=== PATIENT | female | born 1965 | race Caucasian/White ===

== ENCOUNTER 2019-11-14 17:31 | Outpatient (CLI) | payer OTHER, SELFPAY ==
[2019-11-14 18:56] LABS: Basophils # 0.1 10^3/uL (0.0-0.1); Basophils % 0.7 %; Eosinophils # 0.2 10^3/uL (0.0-0.8); Eosinophils % 2.5 %; Hemoglobin 12.4 g/dL (11.5-15.3); Lymphocytes # 2.7 10^3/uL (0.8-4.8); Lymphocytes % 36.7 %; Mean Corpuscular Hemoglobin 29.2 pg (28.0-34.0); Mean Corpuscular Volume 94.1 fL (81-99); Mean Platelet Volume 10.3 fL (7.4-10.4); Monocytes # 0.5 10^3/uL (0.2-0.9); Monocytes % 6.7 %; Neutrophils # 3.9 10^3/uL (1.8-7.7); Nucleated Red Blood Cells % 0 %; Platelet Count 285 10^3/cmm (130-400); Red Blood Count 4.25 10^6/uL (4.1-5.3); Red Cell Distribution Width 12.3 % (12.1-15.1); White Blood Count 7.3 10^3/uL (4.0-10.0)
[2019-11-14 19:32] LABS: Estmated Average Glucose 120; Hemoglobin A1C 5.8 % (4.0-6.0)
[2019-11-14 20:21] LABS: Calcium 9.7 mg/dL (8.5-10.5); Parathyroid Hormone 45.9 pg/mL (15-65)
[2019-11-14 20:33] LABS: Folate Level 19.4 ng/mL (4.8-37.3)
[2019-11-14 21:00] LABS: Alanine Aminotransferase 14 U/L (0-33); Albumin Level 4.4 g/dL (3.5-5.2); Alkaline Phosphatase 81 IU/L (35-105); Anion Gap 16.9 (5-19); Aspartate Amino Transferase 14 U/L (0-32); Blood Urea Nitrogen 10 mg/dL (6-20); Calcium 10.5 mg/dL (8.5-10.5); Carbon Dioxide 27 mmol/L (22-29); Chloride 100 mmol/L (98-107); Ferritin 132 ng/mL (15-150); Globulin 3.1 g/dL (1.3-4.6); Glomerular Filtration Rate 166.3 mL/min (90-130); Glucose 96 mg/dL (65-115); Iron 52 ug/dL (37-145); Magnesium 2.1 mg/dL (1.7-2.3); Osmolality Calculated 286 mOsm/kg (285-295); Percent Saturation 21.3 % (20-50); Phosphorus 3.2 mg/dL (2.5-4.5); Potassium 3.9 mmol/L (3.5-5.1); Sodium 140 mmol/L (136-145); Thyroid Stimulating Hormone 0.03 uIU/mL (0.27-4.20); Total Bilirubin 0.2 mg/dL (0.15-1.2); Total Iron Binding Capacity 244 mcg/dl; Total Protein 7.5 g/dL (6.6-8.7); Unsaturated Iron Binding 192 ug/dL (112-347); Vitamin B12 454 pg/mL (232-1245)
[2019-11-14 21:59] LABS: Chol HDL Ratio 2.55 mg/dL (0.0-4.40); Cholesterol 217 mg/dL (0-200); HDL Cholesterol 85 mg/dL (60-100); LDL Cholesterol Calculated 112 mg/dL (50-129); LDL HDL Ratio 1.32 RATIO (0.00-3.22); Triglycerides 100 mg/dL (0-150)
== END 2019-11-14 17:32 | disposition home or self-care (01) ==
LOC: LAB 17:34
PROVIDERS: PCP Registered Nurse; Visit Provider Surgery
DX: E66.9 Obesity, unspecified (principal)
CPT/HCPCS: 36415; 80053; 80061; 82248; 82310; 82607; 82728; 82746; 83036; 83540; 83550; 83735; 83970; 84100; 84443; 85025

== ENCOUNTER → 2020-02-14 16:29 | Outpatient (BNVA) | payer OTHER, SELFPAY | PROVIDERS: PCP Registered Nurse; Visit Provider Obstetrics & Gynecology | DX: N90.7 Vulvar cyst (principal) | CPT/HCPCS: 88305 ==

== ENCOUNTER 2020-04-11 15:30 | Outpatient (CLI) | payer OTHER, SELFPAY ==
--- NOTE | 2020-04-11 15:40 | MM_ITS ---
WS: [id number] BILATERAL SCREENING DIGITAL MAMMOGRAM WITH CAD HISTORY: SCREENING COMPARISON: 05/26/2018, 03/11/2017, 06/10/2015 and 09/19/2013 Bilateral CC and MLO views submitted. Computer aided detection analyzed. Breast composition: There are scattered areas of fibroglandular density. No suspicious masses, microc alcifications or architectural distortion. Asymmetry in the posterior medial LEFT breast above the ni pple has been present and very similar in appearance to the prior study from 2013. There is an adjace nt biopsy clip. MM/[place] [id number] IMPRESSION: BI-RADS: 2-Benign FOLLOW UP: 1 Year Follow-up
== END 2020-04-11 15:31 | disposition home or self-care (01) ==
LOC: RADSHAW 15:33
PROVIDERS: PCP Nurse Practitioner Family; Visit Provider Nurse Practitioner Family
DX: Z12.31 Encounter for screening mammogram for malignant neoplasm of breast (principal)
CPT/HCPCS: 77067

== ENCOUNTER 2020-06-04 11:40 | Outpatient (CLI) | payer OTHER, SELFPAY ==
--- NOTE | 2020-06-04 12:01 | ECG_ITS ---
[facility] Test Date: 2020-06-04 Pat Name: Gladys Desir Department: Room: Gender: Female Pediatric Intensive Physician: : 1965 Requested By: Juan Tipton Order Number: [id number] Sari MD: Mak Grace M.D. Measurements Intervals [place] Rate: 76 P: 64 SC: 141 QRS: 58 QRSD: 83 T: 62 QT: 343 QTc: 387 Interpretive Statements SINUS RHYTHM INTERPRETATION BASED ON A DEFAULT AGE OF 40 YEARS Compared to ECG 11/09/2017 01:59:25 No significant changes Electronically Signed On 06-04-2020 19:43:05 POWER PROJECT MANAGER by Mak Grace M.D. [id number] f
== END 2020-06-04 11:41 | disposition home or self-care (01) ==
PROVIDERS: PCP Nurse Practitioner Family; Visit Provider Surgery Plastic and Reconstructive Surgery
DX: Z11.59 Encounter for screening for other viral diseases (principal)
CPT/HCPCS: 93005

== ENCOUNTER → 2020-11-04 15:36 | Outpatient (BNVA) | payer OTHER, SELFPAY | PROVIDERS: PCP Nurse Practitioner Family; Visit Provider Family Medicine | DX: E05.90 Thyrotoxicosis, unspecified without thyrotoxic crisis or storm (principal) | CPT/HCPCS: 84439; 84443; 84480 ==

== ENCOUNTER 2021-01-23 13:11 | Outpatient (CLI) | payer OTHER, SELFPAY ==
--- NOTE | 2021-01-23 13:34 | ECG_ITS ---
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
== END 2021-01-23 13:12 | disposition home or self-care (01) ==
PROVIDERS: PCP Family Medicine; Visit Provider Nurse Practitioner Adult Health
DX: G35 Multiple sclerosis (principal)
CPT/HCPCS: 93005

== ENCOUNTER → 2021-05-06 08:20 | Outpatient (BNVA) | payer OTHER, SELFPAY | PROVIDERS: PCP Family Medicine; Visit Provider Family Medicine | DX: Z13.6 Encounter for screening for cardiovascular disorders (principal); E05.90 Thyrotoxicosis, unspecified without thyrotoxic crisis or storm | CPT/HCPCS: 80053; 80061; 84439; 84443; 84480; 85025 ==

== ENCOUNTER → 2021-05-14 13:52 | Outpatient (BNVA) | payer OTHER, SELFPAY | PROVIDERS: PCP Family Medicine; Visit Provider Internal Medicine | DX: E05.20 Thyrotoxicosis with toxic multinodular goiter without thyrotoxic crisis or storm (principal); E05.90 Thyrotoxicosis, unspecified without thyrotoxic crisis or storm | CPT/HCPCS: 84439; 84443; 84480 ==

== ENCOUNTER → 2021-05-18 08:58 | Outpatient (BNVA) | payer OTHER, SELFPAY | PROVIDERS: PCP Family Medicine; Visit Provider Internal Medicine | DX: E05.20 Thyrotoxicosis with toxic multinodular goiter without thyrotoxic crisis or storm (principal) | CPT/HCPCS: 99214 ==

== ENCOUNTER 2021-10-12 14:55 | Outpatient (CLI) | payer OTHER, SELFPAY ==
--- NOTE | 2021-10-12 15:02 | MM_ITS ---
WS: [id number] VIEWS: MLO and CC views both breasts. Breast implant displacement MLO and CC views also obtained. 3D digital tomosynthesis is also included in this exam. Comparison made with prior exam of 05/16/2012, 09/19/2013, 03/11/2017, 05/26/2018, 04/11/2020.. Findings: There was no sign of mass, architectural distortion or suspicious calcification in either breast. Int act bilateral breast implants.Fatty MM/[place] [id number] Impression: BI-RADS: 2-Benign FOLLOW-UP: 1 Year Follow-up This mammogram was also analyzed by the Computer Aided Detection System R2 Imag e Retail Agent.
== END 2021-10-12 14:56 | disposition home or self-care (01) ==
LOC: RADSHAW 14:56
PROVIDERS: PCP Family Medicine; Visit Provider Family Medicine
DX: Z12.31 Encounter for screening mammogram for malignant neoplasm of breast (principal)
CPT/HCPCS: 77063; 77067

== ENCOUNTER → 2022-08-02 10:39 | Outpatient (BNVA) | payer OTHER, SELFPAY | PROVIDERS: PCP Family Medicine; Visit Provider Family Medicine | DX: E05.90 Thyrotoxicosis, unspecified without thyrotoxic crisis or storm (principal); Z13.6 Encounter for screening for cardiovascular disorders; Z98.84 Bariatric surgery status; D50.9 Iron deficiency anemia, unspecified; E55.9 Vitamin D deficiency, unspecified | CPT/HCPCS: 80053; 80061; 82306; 82310; 82607; 82728; 83036; 83550; 83970; 84425; 84439; 84443; 84480; 85025 ==

== ENCOUNTER → 2022-08-11 15:46 | Outpatient (BNVA) | payer OTHER, SELFPAY | PROVIDERS: PCP Family Medicine; Visit Provider Nurse Practitioner | DX: E53.8 Deficiency of other specified B group vitamins (principal); R30.0 Dysuria; N39.0 Urinary tract infection, site not specified; N30.00 Acute cystitis without hematuria | CPT/HCPCS: 81000 ==

== ENCOUNTER → 2022-10-08 13:28 | Outpatient (BNVA) | payer OTHER, SELFPAY | PROVIDERS: PCP Family Medicine; Visit Provider Internal Medicine | DX: E05.20 Thyrotoxicosis with toxic multinodular goiter without thyrotoxic crisis or storm (principal) | CPT/HCPCS: 84439; 84443; 84480 ==

== ENCOUNTER 2022-10-20 09:30 | Outpatient (CLI) | payer OTHER, SELFPAY ==
--- NOTE | 2022-10-20 09:39 | MM_ITS ---
WS: [id number] BILATERAL SCREENING DIGITAL BREAST MAMMOGRAPHY WITH ZAINA DISPLACEMENT VIEWS. CAD PERFORMED. HISTORY: SCREENING COMPARISON: 10/12/2021, 04/11/2020 Bilateral craniocaudal and mediolateral oblique views are performed with tomosynthesis and SM. Zaina displacement views in CC and MLO projection also performed. Breasts composition: There are scattered areas of fibroglandular density. Retropectoral implants are intact. No capsular contraction or collapse. No suspicious masses. Benign calcifications in each breast. MM/[place] [id number] IMPRESSION: BI-RADS: 2-Benign FOLLOW-UP: 1 Year Follow-up
== END 2022-10-20 09:31 | disposition home or self-care (01) ==
LOC: RAD 09:35
PROVIDERS: PCP Family Medicine; Visit Provider Family Medicine
DX: Z12.31 Encounter for screening mammogram for malignant neoplasm of breast (principal)
CPT/HCPCS: 77063; 77067

== ENCOUNTER 2022-10-25 09:51 | Outpatient (CLI) | payer OTHER, SELFPAY ==
--- NOTE | 2022-10-25 10:14 | NM_ITS ---
WS: [id number] NUCLEAR MEDICINE THYROID UPTAKE AND SCAN HISTORY: hyperthyroidism COMPARISON: Ultrasound 07/27/2016 Radionucleotide: 120 uCi Iodine-123 sodium iodide capsule. Oral ingestion. Imaging performed at 24 hours post ingestion of capsule. Marker placed over the chin and suprasternal notch. Hyperfunctioning nodule in the mid to lower LEFT thyroid. There is marked increased uptake of the rad iotracer within this nodule. LEFT thyroid lobe is larger than the RIGHT. The RIGHT is small caliber. No photopenic defects are identified. Thyroid uptake at 24 hours: 38%. (Normal uptake at 24 hours 10-30%). NM/NM thyroid uptake multi [id number] IMPRESSION: 1. Thyroid uptake at 24 hours is just slightly greater than normal. Very mild hyperthyroidism. 2. Hyperfunctioning nodule mid to lower LEFT thyroid. On a prior ultrasound fr om 07/27/2016 solid mass in this location. No cold nodules.
== END 2022-10-25 09:52 | disposition home or self-care (01) ==
LOC: RAD 09:54
PROVIDERS: PCP Family Medicine; Visit Provider Internal Medicine
DX: E05.20 Thyrotoxicosis with toxic multinodular goiter without thyrotoxic crisis or storm (principal)
CPT/HCPCS: 78014; A9516

== ENCOUNTER → 2022-11-18 14:13 | Outpatient (BNVA) | payer OTHER, SELFPAY | PROVIDERS: PCP Family Medicine; Visit Provider Family Medicine | DX: Z20.2 Contact with and (suspected) exposure to infections with a predominantly sexual mode of transmission (principal) | CPT/HCPCS: 86592; 86803; 87806 ==

== ENCOUNTER → 2022-11-25 14:43 | Outpatient (BNVA) | payer OTHER, SELFPAY | PROVIDERS: PCP Family Medicine; Visit Provider Family Medicine | DX: Z20.2 Contact with and (suspected) exposure to infections with a predominantly sexual mode of transmission (principal) | CPT/HCPCS: 87491; 87591; 87661 ==

== ENCOUNTER → 2022-12-09 15:33 | Outpatient (BNVA) | payer OTHER, SELFPAY | PROVIDERS: PCP Family Medicine; Visit Provider Internal Medicine | DX: E05.20 Thyrotoxicosis with toxic multinodular goiter without thyrotoxic crisis or storm (principal) | CPT/HCPCS: 84439; 84443; 84480 ==

== ENCOUNTER → 2023-01-10 13:24 | Outpatient (BNVA) | payer OTHER, SELFPAY | PROVIDERS: PCP Family Medicine; Visit Provider Specialist | DX: G35 Multiple sclerosis (principal) | CPT/HCPCS: 82306; 82728; 83550; 86160; 86162; 86235; 86255; 86376 ==

== ENCOUNTER 2023-02-10 15:23 | Outpatient (CLI) | payer OTHER, SELFPAY ==
--- NOTE | 2023-02-10 16:00 | USR_ITS ---
PROCEDURE INFORMATION: Exam: US Soft Tissue Head and Neck, Thyroid Exam date and time: 02/10/2023 4:14 PM Age: 57 years old Clinical indication: Condition or disease; Thyroid disorder; Other: Tyroid nodule TECHNIQUE: Imaging protocol: Real-time ultrasound scan of the neck with image documentation. Exam focused on the thyroid. COMPARISON: [place] thyroid [id number] 07/27/2016 7:14 AM FINDINGS: Right thyroid lobe: There is a 1.5 x 0.9 x 0.8 cm solid hypoechoic taller than wide nodule in the posterosuperior right lobe. Margins are smooth. Tiny punctate echogenic foci are seen in the lesion consistent with microcalcifications. There is a 1.2 x 1.1 x 0.9 cm measured focal abnormality in the inferior right lobe. This abnormality is poorly imaged. The abnormality consists of a macro calcification with posterior acoustic shadowing and poorly visualized surrounding thyroid tissue. Margins are ill-defined. The right lobe measures 4.6 x 1.5 x 1.4 cm for a volume of 5.1 cc. Background parenchymal echotexture in the right lobe is normal. Left thyroid lobe: There is a mixed solid and cystic 2.5 x 1.7 x 1.4 cm wider than tall nodule in the mid left lobe. The solid component is isoechoic to hyperechoic relative to background thyroid parenchyma. Margins are partially smooth and partially ill-defined. Punctate internal echogenic foci are seen in the lesion consistent with microcalcifications. The left lobe measures 4.2 x 1.5 x 1.5 cm for a volume of 5 cc. Isthmus: The isthmus is normal. The isthmus measures 3 mm in thickness. Lymph nodes: No cervical lymphadenopathy is visible. US/US thyroid [id number] IMPRESSION: 1. 1.5 cm solid right lobe thyroid nodule. TI-RADS category TR5, Highly Suspicious. Fine needle aspiration is recommended. (Reference: Chance) 2. 2.5 cm mixed solid and cystic left lobe thyroid nodule. TI-RADS category TR4, Moderately Suspicious. Fine needle aspiration is recommended. (Reference: Chance) 3. Poorly visualized macrocalcification with questionable solid nodule at the inferior right lobe. Recommend repeat ultrasound interrogation of this lesion. REFERENCES: Chance FN, Edie WD, Kt EG et al. ACR Thyroid Imaging, Reporting and Data System (TI-RADS): White Paper of the ACR TI-RADS Committee. J Am Joel Radiol. 2017; 14: 587-595.
== END 2023-02-10 15:24 | disposition home or self-care (01) ==
PROVIDERS: PCP Family Medicine; Visit Provider Otolaryngology
DX: E04.1 Nontoxic single thyroid nodule (principal)
CPT/HCPCS: 76536

== ENCOUNTER 2023-02-25 11:20 | Outpatient (CLI) | payer OTHER, SELFPAY ==
--- NOTE | 2023-02-25 12:45 | US_ITS ---
WS: [email or web address] ULTRASOUND THYROID FNA CLINICAL INFORMATION: E04.1 - Nontoxic single thyroid nodule TECHNIQUE: Ultrasound-guided FNA FINDINGS: The procedure including risks, benefits, and complications were discussed with the patient who agreed to proceed. Timeout was performed. Using sterile technique patient was prepped and draped in usual sterile fashion. After 1% lidocaine, using ultrasound guidance, a 25-gauge needle was advanc ed into the LEFT mid thyroid nodule. 4 passes were made with active aspiration. Next, the RIGHT mid thyroid nodule was localized and 4 passes were performed with active aspiration. No immediate complications. Pathology was present for slide preparation. No immediate complications. Patient remained in the ultrasound suite 10 minutes postprocedure with intermittent ultrasound to ens ure no hematoma. No hematoma 10 minutes postprocedure. IMPRESSION: Uncomplicated ultrasound-guided thyroid FNA of the RIGHT and LEFT thyroid nodules.
== END 2023-02-25 11:21 | disposition home or self-care (01) ==
PROVIDERS: PCP Family Medicine; Visit Provider Otolaryngology
DX: E04.1 Nontoxic single thyroid nodule (principal)
CPT/HCPCS: 10005; 88173

== ENCOUNTER → 2023-03-08 12:59 | Outpatient (BNVA) | payer OTHER, SELFPAY | PROVIDERS: PCP Family Medicine; Visit Provider Family Medicine | DX: Z98.84 Bariatric surgery status (principal); Z13.6 Encounter for screening for cardiovascular disorders; E55.9 Vitamin D deficiency, unspecified; D50.9 Iron deficiency anemia, unspecified; E53.8 Deficiency of other specified B group vitamins; E05.20 Thyrotoxicosis with toxic multinodular goiter without thyrotoxic crisis or storm; R63.5 Abnormal weight gain | CPT/HCPCS: 82306; 82607; 82728; 83550; 84439; 84443; 84480; 85025 ==

== ENCOUNTER 2023-03-22 13:02 | Outpatient (CLI) | payer OTHER, SELFPAY ==
--- NOTE | 2023-03-22 15:35 | OP.DCCON ---
Reason for Visit: Weight gain following gastric bypass surgery Person Interviewed: Patient Medical History, Labs and Background: Gladys had bariatric surgery in October 2017 and eventually lost 100 lbs. She has hyperthyroidism, B-12 deficiency, GERD, gastritis, RLS, and anxiety. Height: 5 ft 3 in Weight: 177 lb BMI: 31.4 kg/m2 UBW: around 150-160 IBW: 140-150 lbs Weight History: Gladys lost the 100 lbs, but has noticed in the past year that her weight is creeping back up on her and she is anxious - even was a bit teary eyed talking about it. Her goal would be between 140-150, and a couple of years ago she was 150-160 lbs. Concerns and Goals: She is stressed at the thought of losing control and gaining all the weight back. Lately she has had days where she will eat maybe 1 meal/day. Sleep Hygiene: Work can start as early as 3am so her sleep habits are not good per her own admission. Physical Activity: The one thing she knows she needs to get back to is walking. When she was feeling her best she was walking 5 miles/day and it helped with weight loss and overall well-being. She truly enjoys that time. Other Feeding Issues: She did not mention any feeding issues other then she has no appetite. Food Allergies and Sensitivities: She doesn't have any at this time. Meds, Supplements & Other: She gets a B-12 injection and takes a MV> 24 Hour Recall: Breakfast Time: 3 am 2 eggs cooked in microwave Snack Time: noon protein bar Lunch Time: Snack Time: Dinner Time: Snack Time: Eating Out: She said she rarely eats out. Soda vs Milk vs Water: She is not a milk drinker, occasionally has an alcoholic drink and doesn't drink soda. Additional Comments: Gladys seemed almost terrified at the thought of gaining her wt back. Recommendations: Assessment: Gladys wants to get back down to 150 lbs. As she talks about it she is very anxious and I suspect it affects her appetite. Not walking like she used to is what she describes as the aviles to her wt loss. Her work hours are crazy and affect her sleep patterns, but in general her sleep hygiene is messed up. We discussed the need for smaller meals throughout the day so as to not send her body into a starvation mode and to accommodate the fuel she actually needs. Diagnosis: Inadequate oral intake r/t fear AEB irregular eating patterns. Intervention: Because she brought up exercise, we talked about that as part of her plan for this next week, to walk at least 3 times, for 20 minutes or more. Next I asked her to consider writing out a meal plan at the start of each day where she would write down what she would eat for that day. It would be 3-5 small meals, with drinking water in between, and it would allow her know what she was eating and not feel out of control. Lastly we talked about support and she has a friend that would be someone who could encourage and support and ask her about her goals. Monitoring and Evaluation: I will email her goals to her so that she has my information for following up and can contact me with questions or concerns. Coding Level of Care Code Nutrition/Individ/Init 60 min Time Spent (min) 60
== END 2023-03-22 13:03 | disposition home or self-care (01) ==
PROVIDERS: PCP Family Medicine; Visit Provider Family Medicine
DX: Z71.3 Dietary counseling and surveillance (principal); R63.5 Abnormal weight gain; Z98.84 Bariatric surgery status; Z68.31 Body mass index [BMI] 31.0-31.9, adult
CPT/HCPCS: 82306; 82607; 82728; 83550; 84439; 84443; 84480; 85025; 97802

== ENCOUNTER → 2023-05-10 11:41 | Outpatient (BNVA) | payer OTHER, SELFPAY | PROVIDERS: PCP Family Medicine; Visit Provider Family Medicine | DX: N89.8 Other specified noninflammatory disorders of vagina (principal) | CPT/HCPCS: 87070; 87077; 87205 ==

== ENCOUNTER 2023-08-01 07:34 | Outpatient (CLI) | payer OTHER, SELFPAY ==
--- NOTE | 2023-08-01 07:45 | USCV_ITS ---
Bertaisauro Gladys Age: 58 Gender: F : 1965 Exam Date: 08/01/2023 07:49 Ordering Phys: Sil Fabian DO Technologist: SEYMOUR Exam Location: [facility] [place] Indication: Right Bruit Risk Factors: Previous Vascular Surgery: Right Brachial BP: / Left Brachial BP: / Right Left Velocity (cm/s) Spectral Plaque Velocity (cm/s) Spectral Plaque Syst/Diast Broadening Syst/Diast Broadening 48.60/ 19.10 Prox CCA 58.10 / 16.20 56.50/ 25.00 Mid CCA 53.80 / 23.90 56.50/ 24.60 Distal CCA 62.00 / 29.00 45.30/ 22.30 Prox ICA 49.10 / 21.90 58.30/ 26.00 Mid ICA 64.60 / 26.20 60.80/ 26.70 Distal ICA 61.40 / 30.40 43.40 ECA 36.30 1.08 ICA/CCA 1.04 Antegrade Vertebral Antegrade 36.20/ 15.10 cm/s 45.90/ 19.20 cm/s Tri Subclavian Tri 93.50 94.00 FINDINGS Comparison: none available. No significant elevation of systolic or diastolic velocities. Waveforms are normal. Minimal bilateral scattered calcified plaque and intimal thickening throughout the common carotid arteries and extending through the bifurcation. Antegrade vertebral arteries. CONCLUSIONS Bilateral ICA stenosis less than 50%. Minimal bilateral carotid atherosclerosis. Dr. Adelia Nelson DO (Electronically Signed) Final Date: 01 August 2023 08:18 S
== END 2023-08-01 07:35 | disposition home or self-care (01) ==
LOC: RAD 07:34
PROVIDERS: PCP Family Medicine; Visit Provider Family Medicine
DX: I65.23 Occlusion and stenosis of bilateral carotid arteries (principal); R09.89 Other specified symptoms and signs involving the circulatory and respiratory systems
CPT/HCPCS: 93880

== ENCOUNTER → 2023-08-09 11:46 | Outpatient (BNVA) | payer OTHER, SELFPAY | PROVIDERS: PCP Family Medicine | DX: E04.1 Nontoxic single thyroid nodule (principal) | CPT/HCPCS: 84439; 84443; 84480 ==

== ENCOUNTER 2023-10-17 12:01 | Outpatient (CLI) | payer OTHER, SELFPAY ==
[2023-10-17 12:06] VITALS: BMI 33.6
--- NOTE | 2023-10-17 12:06 | ECG_ITS ---
[facility] Test Date: 2023-10-17 Pat Name: Gladys Desir Department: Room: Gender: Female Optical Instrument Inspector: Maren MinayaElan : 1965 Requested By: Kingston Castellanos Order Number: [id number] Sari MD: Mak Grace M.D. Interpretive Statements NAME OF STUDY: TREADMILL STRESS TEST INDICATION: Jaw pain, PROCEDURE: At the baseline, the patient's blood pressure was 134/79 with a heart rate of 93. The baseline electrocardiogram showed normal sinus rhythm with some early repolarization changes. Because of the artifacts, difficult to interpret. The patient exercised for 7 minutes and 30 seconds on a standard Julio protocol. Patient attained a maximum heart rate of 170 beats per minute(105% of the maximum predicted heart rate) with a blood pressure at the peak exercise of 181/78 mm Hg. The EKG at the peak exercise revealed no significant changes. Patient did not have any chest pain or any significant cardiac arrhythmias with the exercise During the recovery phase, there were no new changes. Blood pressure at the end of the recovery phase was 135/82 mm Hg with a heart rate of 98 per minute. CONCLUSION: 1. No significant EKG changes with the treadmill exercise 2. No exercise-induced chest pain or cardiac arrhythmia 3. Fair exercise tolerance, attained a maximum of 10.2 METs Electronically Signed On 10-24-2023 23:18:30 CDT by Mak Grace M.D. [id number]
[2023-10-17 13:08] VITALS: BP 135/82; PULSE 98
== END 2023-10-17 12:02 | disposition home or self-care (01) ==
PROVIDERS: PCP Family Medicine; Visit Provider Internal Medicine Cardiovascular Disease
DX: R68.84 Jaw pain (principal)
CPT/HCPCS: 93017

== ENCOUNTER 2024-02-22 09:25 | Outpatient (CLI) | payer OTHER, SELFPAY ==
--- NOTE | 2024-02-22 09:31 | MM_ITS ---
WS: [id number] VIEWS: MLO and CC views both breasts. 3D digital tomosynthesis is also included in this exam. Breast implant displacement MLO and cc views also are obtained. Comparison made with prior exam of 10/12/2021 and 10/20/2022.. Findings: There was no sign of mass, architectural distortion or suspicious calcification in either breast. Int act bilateral breast implants. There are scattered areas of fibroglandular density MM/[place] [id number] Impression: BI-RADS: 2-Benign finding. FOLLOW-UP: 1 Year Follow-up This mammogram was also analyzed by the Computer Aided Detection System R2 Imag e Sec Accountant.
== END 2024-02-22 09:26 | disposition home or self-care (01) ==
PROVIDERS: PCP Family Medicine; Visit Provider Family Medicine
DX: Z12.31 Encounter for screening mammogram for malignant neoplasm of breast (principal); R92.323 Mammographic fibroglandular density, bilateral breasts
CPT/HCPCS: 77063; 77067

== ENCOUNTER → 2024-03-08 13:55 | Outpatient (BNVA) | payer OTHER, SELFPAY | PROVIDERS: PCP Family Medicine; Visit Provider Family Medicine | DX: E05.90 Thyrotoxicosis, unspecified without thyrotoxic crisis or storm (principal); E53.8 Deficiency of other specified B group vitamins | CPT/HCPCS: 80053; 80061; 82607; 84439; 84443; 84480; 85025 ==

== ENCOUNTER → 2024-03-27 07:48 | Outpatient (BNVA) | payer OTHER, SELFPAY | PROVIDERS: PCP Family Medicine | DX: Z20.2 Contact with and (suspected) exposure to infections with a predominantly sexual mode of transmission (principal) | CPT/HCPCS: 86695; 86696; 87491; 87591; 87806 ==

== ENCOUNTER → 2025-04-03 15:13 | Outpatient (BNVA) | payer OTHER, SELFPAY | PROVIDERS: PCP Family Medicine; Visit Provider Family Medicine | DX: E05.90 Thyrotoxicosis, unspecified without thyrotoxic crisis or storm (principal); E53.8 Deficiency of other specified B group vitamins | CPT/HCPCS: 80053; 80061; 82607; 84439; 84443; 84480; 85025 ==

== ENCOUNTER 2025-04-09 08:23 | Outpatient (CLI) | payer OTHER, SELFPAY ==
--- NOTE | 2025-04-09 08:30 | MM_ITS ---
WS: [email or web address] BILATERAL 3D TOMOSYNTHESIS DIGITAL SCREENING MAMMOGRAPHY WITH CAD CLINICAL INFORMATION: SCREENING HISTORY: Screening mammogram. No current complaints. COMPARISON: 2023 TECHNIQUE: Bilateral CC and MLO views. FINDINGS: Stable bilateral breast implants Scattered fibroglandular densities bilaterally. No suspicious focal mass, asymmetry, calcifications, or architectural distortion. No evidence of malignancy. A few incidental punctate calcifications. Biopsy clip LEFT breast with long-term stability of the adjacent asymmetry. MM/MM [facility] tomosynthesis [id number] IMPRESSION: DENSITY: There are scattered areas of fibroglandular density. BI-RADS: 2 - Benign. FOLLOW UP: 1 Year Follow-up Recommend return to annual screening mammography.
== END 2025-04-09 08:24 | disposition home or self-care (01) ==
LOC: RAD 08:24
PROVIDERS: PCP Family Medicine; Visit Provider Family Medicine
DX: Z12.31 Encounter for screening mammogram for malignant neoplasm of breast (principal); R92.323 Mammographic fibroglandular density, bilateral breasts; R92.1 Mammographic calcification found on diagnostic imaging of breast; Z96.89 Presence of other specified functional implants
CPT/HCPCS: 77063; 77067